=== PATIENT | female | born 1955 | race Two or more races ===

== ENCOUNTER 2024-10-02 11:02 | Inpatient (IN) | payer MEDICAID, OTHER ==
[~2024-10-02] VITALS: Ht 152.4 cm; Wt 77.0 kg
--- NOTE | 2024-10-02 11:32 | ECG ---
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
--- NOTE | 2024-10-02 11:55 | ED.PDOC ---
Musculoskeletal HPI Comments 69-year-old female presents with a chief complaint of bilateral leg pain and tingling x 1 month. Patient states that she had a vascular surgery on both her legs on August 29, 2024, and since then has developed bilateral leg pain. Patient states that most of the pain is localized to her left calf compared to the right. Patient also states that she feels chest pressure to her sternal region. Patient denies active chest pain. Patient specifically denies dizziness even though the triage notes state that she was dizzy. PMHx: Pre-Diabetes, HTN, Osteoporosis PSHx: Vascular Surgery on Bilateral Legs HPI: Poor Historian. REVIEW OF SYSTEMS: CONSTITUTIONAL: Denies acute: fever, diaphoresis, chills, HEAD: Denies acute: headache, photophobia Eyes: Denies acute: Double vision, vision loss, eye pain, eye discharge. EARS: Denies acute: tinnitus, hearing loss, ear discharge, ear pain, THROAT: Denies acute: sore throat, swelling, difficulty swallowing , pain with swallowing, change in voice. NECK: Denies acute: neck pain, neck swelling, stiff neck. HEART: Denies acute : palpitations, LUNGS: Denies acute: SOB, wheezing, cough, hemoptysis ABDOMEN: Denies acute: abdominal pain, Nausea, Vomiting, diarrhea, melena , hematemesis, hematochezia SKIN: Denies acute: rash, redness, lesions, itchiness. EXTREMITIES: Denies acute: calf pain, numbness, tingling, weakness, Denies acute: Low back pain. Neuro: Denies acute: focal neurological deficit, motor or sensory focal neurological deficit, tremors, seizure like activity, confusion, dizziness, change in mental status, loss of bowel or bladder function, cauda equina like symptoms. : Denies acute: dysuria, hematuria, flank pain, increase in urinary frequency. PSYCH: Denies acute: hallucination, suicidal ideation, homicidal ideation. FEMALE: Denies acute: abnormal vaginal bleeding, foul odor, unusual discharge. PHYSICAL EXAM: General: ---mild-----acute distress, awake and alert. Head: normocephalic, atraumatic. Neck: supple, trachea is midline, no swelling. Throat: Normal phonation. Eyes:, no erythema, no purulent discharge, no proptosis, no icterus. Heart: regular rate, regular rhythm, no significant murmur appreciated. Lungs: no apparent respiratory distress, Able to speak in full sentences. No wheezing, no rhonchi, no crackles. No stridors Clear to auscultation bilaterally. Abdomen: non tender to palpation, non distended, soft, no guarding, no rebound, + bowel sounds. Neuro: Awake, Alert, oriented to name, self, situation, follows commands GCS=15. Speech is normal. Skin: no petechia, no purpura, no cyanosis, non-pale, not jaundice. Lower extremities: --no - Pitting edema no deformity, no focal swelling, no calf TTP. Patient have some left lateral focal calf tenderness at the site where she had some vein surgery recently in the left lower extremity. Patient is neurovascularly intact in bilateral lower extremity. Makes eye contact. moves all four extremities. Face: no apparent facial droop. Pedal pulses are palpable. ED COURSE: DISCLAIMER: This medical document was created using an electronic medical record system with voice recognition software and computerized dictation system. Although this document has been carefully reviewed, there might still be some phonetic and typographical errors. Occasional wrong-word or "sound-alike" substitutions may have occurred due to the inherent limitations of voice recognition software. These areas are purely typographical due to imperfections of the software programs and do not reflect any compromise in the patient's medical care. Please read the chart carefully and recognize, using context, where these substitutions have occurred. 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 Was a procedure done?: No Differential Diagnosis EXT Differential Diagnosis: Cellulitis, CHF, Deep Vein Thrombosis, Compartment Syndrome, Fracture, Sprain, Contusion, Strain, Rheumatoid, Neurovascular injury, Arthritis, Bursitis, Other (As far as the chest tightness: Ddx include but not limitied to gastritis, musculoskeletal pain, radiculopathy, atypical chest pain, dissection, aneurysm, ACS, unstable angina, hiatal hernia, GERD, anxiety, costochondritis, PE, pneumothroax, neoplasm, cardiac ischemia, drug abuse, anemia.) X-Ray, Labs, Meds, VS Vital Signs Date Time Temp Pulse Resp B/P (MAP) Pulse Ox O2 Delivery O2 Flow Rate FiO2 10/02/24 22:20 99.0 52 18 146/70 (95) 96 99.0 10/02/24 11:21 69 10/02/24 11:06 98.6 65 18 132/52 96 98.6 Lab Test 10/02/24 18:26 10/02/24 14:40 10/02/24 13:22 10/02/24 11:18 Range/Units Troponin I High Sensitivity 10 8 7 </=34 ng/L White Blood Count 6.4 4.4-10.8 10^3/uL Red Blood Count 4.75 4.0-5.20 10^6/uL Hemoglobin 14.3 12.2-16.2 g/dL Hematocrit 42.3 36.0-46.0 % Mean Corpuscular Volume 88.9 80.0-100.0 fL Mean Corpuscular Hemoglobin 30.1 28.0-32.0 pg Mean Corpuscular Hemoglobin Concent 33.9 32.0-36.0 g/dL Red Cell Distribution Width 14.3 11.8-14.3 % Platelet Count 232 140-450 10^3/uL Mean Platelet Volume 9.0 6.9-10.8 fL Neutrophils (%) (Auto) 65.4 37.0-80.0 % Lymphocytes (%) (Auto) 24.5 10.0-50.0 % Monocytes (%) (Auto) 6.8 0.0-12.0 % Eosinophils (%) (Auto) 2.5 0.0-7.0 % Basophils (%) (Auto) 0.8 0.0-2.0 % Neutrophils # (Auto) 4.2 1.6-8.6 10 ^3/uL Lymphocytes # (Auto) 1.6 0.4-5.4 10 ^3/uL Monocytes # (Auto) 0.4 0-1.3 10 ^3/uL Eosinophils # (Auto) 0.2 0-0.8 10 ^3/uL Basophils # (Auto) 0 0-0.2 10 ^3/uL Nucleated Red Blood Cells 0.0 % D-Dimer, Quantitative 0.54 H 0.0-0.49 mg/L FEU Sodium Level 142 136-145 mmol/L Potassium Level 4.8 3.5-5.1 mmol/L Chloride Level 108 H 98-107 mmol/L Carbon Dioxide Level 28 20-31 mmol/L Anion Gap 6 5-15 Blood Urea Nitrogen 9 9-23 mg/dL Creatinine 0.63 0.550-1.02 mg/dL Glomerular Filtration Rate Calc 95 >90 mL/min BUN/Creatinine Ratio 14.3 10.0-20.0 Serum Glucose 98 74-106 mg/dL Lactic Acid Level 0.7 0.4-2.0 mmol/L Calcium Level 9.6 8.7-10.4 mg/dL Magnesium Level 2.5 1.6-2.6 mg/dL Total Bilirubin 0.5 0.2-1.0 mg/dL Aspartate Amino Transferase (AST) 25 13-40 U/L Alanine Aminotransferase (ALT) 26 7-40 U/L Alkaline Phosphatase 54 46-116 U/L B-Type Natriuretic Peptide 127.31 0-100 pg/mL Total Protein 7.3 5.7-8.2 g/dL Albumin 4.6 3.2-4.8 g/dL POC Glucose 136 H 70-106 mg/dl PATIENT: NATHALY FAIRBANKSCT: [id number]: [id number] : 1955 LOC: ER ROOM / BED: / AGE / SEX: 69 / F ADM STATUS: REG ER SERVICE 1150 ORDERING PHYSICIAN: AUDREY REGAN DO PROCEDURE(s): CXRP - CHEST PORTABLE REASON: cp ORDER NUMBER(s): [id number], ACCESSION NUMBER(s): [id number] CHEST RADIOGRAPH Indication: cp Technique: Single frontal view of the chest was obtained COMPARISON: None FINDINGS: Lines and Tubes: None Lungs: Clear Pleura: No effusion. No pneumothorax. Cardiomediastinal contours: Unremarkable Bones: Unremarkable IMPRESSION: No acute disease. ATED BY: ANDER NOBLE MD DICTATED DATE/TIME: 10/02/241220 SIGNED BY: ANDER NOBLE MD SIGNED DATE/TIME: 10/02/24 [address] [address] Ph: [phone] DIAGNOSTIC IMAGING Diagnostic Imaging Report : [id number] Signed PATIENT: NATHALY FAIRBANKSCT: [id number] UNIT: [id number] : 1955 LOC: ER ROOM / BED: / AGE / SEX: 69 / F ADM STATUS: REG ER SERVICE 1508 ORDERING PHYSICIAN: AUDREY REGAN DO PROCEDURE(s): CTACH - CT ANGIO CHEST CONTRAST REASON: cp ORDER NUMBER(s): [id number], ACCESSION NUMBER(s): [id number] CTA Chest with intravenous contrast INDICATION: cp COMPARISON: None TECHNIQUE: Multidetector spiral CTA of the chest was performed of the chest with intravenous contrast. PULMONARY ANGIOGRAPHY PROTOCOL was utilized using a bolus- tracking technique centered on the main pulmonary artery. Axial, coronal and sagittal multiplanar and MIP reformats were performed. Radiation Dose : 1. Chest: CTDI volume is 26.78 mGy. Dose-length product is 1.79 mGy*cm The dose indicators for CT are the volume Computed Tomography (CT) Dose Index (CTDIvol) and the Dose Length Product (DLP), and are measured in units of mGy and mGy-cm, respectively. These indicators are not patient dose, but values generated from the CT scanner acquisition factors. The report includes radiation exposure data for exposures received during this examination. Findings: Pulmonary artery: No pulmonary embolism Lower neck: Normal thyroid. Lungs: No focal consolidation, pleural effusion or pneumothorax. Heart/Vascular Structures: Normal heart size. No pericardial effusion. Lymph Nodes: No adenopathy Pleura: No pleural effusion or significant pneumothorax. Musculoskeletal: No acute osseous abnormality. Soft tissues: Normal. Upper abdomen: Limited portions of the upper abdomen are unremarkable. IMPRESSION: 1. No pulmonary embolism. 2. No acute thoracic finding. ATED BY: NIMESH DAMIAN MD DICTATED DATE/TIME: 10/02/241741 SIGNED BY: NIMESH DAMIAN MD SIGNED DATE/TIME: 10/02/241741 CC: Time of 1ST Reevaluation: 12:13 Reevaluation 1ST: Unchanged Time of 2ND Reevaluation: 15:09 ( OF NOW, ULTRASOUND HAS NOT BEEN COMPLETED YET. ) Patient Education/Counseling: Diagnosis, Treatment Family Education/Counseling: No Family Present Comments MDM: patient presented with the above HPI.--leg pain and cardiac--workup was initiated. patient was found with the above mentioned diagnosis. the following medications were ordered: please refer to order lists of meds and tests obtained by myself Dr. Regan. Patient ED course and VS have been stabilized. Patient has been reassessed in the ED and remained in a stable condition. Escalation of care considered: Consideration of escalation to observation or admission Rule out PE. Rule out DVT. Patient was ADMITTED to the medicine team for further evaluation and treatment of their presentation. All the reports of any imaging studies that were ordered by myself were reviewed by myself. Departure 1 Departure Time of Disposition: 14:09 Impression: Primary Impression: Leg pain Qualified Codes: M79.604 - Pain in right leg; M79.605 - Pain in left leg Additional Impressions: Chest pain Qualified Codes: R07.9 - Chest pain, unspecified Left against medical advice Disposition: 09 ADMITTED INPATIENT Admit to: [facility] Condition: Fair Additional Instructions: Patient was placed for admission but I was informed she left against medical advice Discharged With: Self Critical Care Note Critical Care Time?: No I personally scribed for AUDREY REGAN DO ([email or web address]) on 10/02/24 at 11:55. Electronically submitted by Bradley Nation ([email or web address]). I personally scribed for AUDREY REGAN DO ([email or web address]) on 10/02/24 at 15:10. Electronically submitted by Bradley Nation ([email or web address]). I personally scribed for AUDREY REGAN DO ([email or web address]) on 10/02/24 at 16:12. Electronically submitted by Bradley Nation ([email or web address]). AUDREY REGAN DO Oct 02, 2024 11:55
--- NOTE | 2024-10-02 12:24 | DVH ---
CHEST RADIOGRAPH Indication: cp Technique: Single frontal view of the chest was obtained COMPARISON: None FINDINGS: Lines and Tubes: None Lungs: Clear Pleura: No effusion. No pneumothorax. Cardiomediastinal contours: Unremarkable Bones: Unremarkable IMPRESSION: No acute disease.
[2024-10-02 13:36] LABS: Hematocrit 42.3 % (36.0-46.0); Hemoglobin 14.3 g/dL (12.2-16.2); Mean Corpuscular Hemoglobin 30.1 pg (28.0-32.0); Mean Corpuscular Volume 88.9 fL (80.0-100.0); Nucleated Red Blood Cells % 0.0 %
[2024-10-02 13:54] LABS: Alanine Aminotransferase 26 U/L (7-40); Albumin 4.6 g/dL (3.2-4.8); Alkaline Phosphatase 54 U/L (46-116); Anion Gap 6 (5-15); BUN/Creatinine Ratio 14.3 (10.0-20.0); Blood Urea Nitrogen 9 mg/dL (9-23); Calcium 9.6 mg/dL (8.7-10.4); Carbon Dioxide 28 mmol/L (20-31); Glucose 98 mg/dL (74-106); Magnesium 2.5 mg/dL (1.6-2.6); Potassium 4.8 mmol/L (3.5-5.1); Sodium 142 mmol/L (136-145); Total Protein 7.3 g/dL (5.7-8.2)
[2024-10-02 13:55] LABS: Bilirubin, Total 0.5 mg/dL (0.2-1.0); Chloride 108 mmol/L (98-107)
[2024-10-02] MEDS: IOHEXOL 350 MG/ML 100ML IJ ONE (15:17)
[2024-10-02] MEDS ORDERED: ALBUTEROL SULF 2.5 MG/0.5ML(0.5%) NEB SOLN NEB PRN (16:00)
[2024-10-02] MEDS ORDERED: ACETAMINOPHEN 325 MG TAB PO PRN (16:00)
[2024-10-02] MEDS ORDERED: ONDANSETRON HCL 4 MG/2 ML VIAL IV PRN (16:00)
[2024-10-02] MEDS ORDERED: DOCUSATE SOD 100 MG CAP PO PRN (16:00)
[2024-10-02] MEDS ORDERED: hydrALAZINE HCL 20 MG/ML VL IV PRN (16:00)
[2024-10-02] MEDS ORDERED: HYDROcodone-ACET 5/325MG TAB PO PRN (16:00)
--- NOTE | 2024-10-02 16:19 | DVH ---
US BiLat Lower DVT HISTORY: leg pain COMPARISON: None TECHNIQUE: Duplex doppler evaluation of the deep venous system of the lower extremity from the common femoral veins, superficial femoral vein, great saphenous vein, deep femoral vein, popliteal vein, an d calf veins, including color doppler and spectral/pulsed waveform analysis, was performed. FINDINGS: Right: - Common femoral vein: Compressible - Deep femoral vein: Compressible - Femoral vein: Compressible - Popliteal vein: Compressible - Posterior tibial vein: Waveforms present - Other: Carmichael cyst. Left: - Common femoral vein: Compressible - Deep femoral vein: Compressible - Femoral vein: Compressible - Popliteal vein: Compressible - Posterior tibial vein: Waveforms present - Other: Carmichael cyst. IMPRESSION: No right or left lower extremity deep venous thrombosis.
--- NOTE | 2024-10-02 17:45 | DVH ---
CTA Chest with intravenous contrast INDICATION: cp COMPARISON: None TECHNIQUE: Multidetector spiral CTA of the chest was performed of the chest with intravenous contrast . PULMONARY ANGIOGRAPHY PROTOCOL was utilized using a bolus-tracking technique centered on the main p ulmonary artery. Axial, coronal and sagittal multiplanar and MIP reformats were performed. Radiation Dose : 1. Chest: CTDI volume is 26.78 mGy. Dose-length product is 1.79 mGy*cm The dose indicators for CT are the volume Computed Tomography (CT) Dose Index (CTDIvol) and the Dose Length Product (DLP), and are measured in units of mGy and mGy-cm, respectively. These indicators are not patient dose, but values generated from the CT scanner acquisition factors. The report includes radiation exposure data for exposures received during this examination. Findings: Pulmonary artery: No pulmonary embolism Lower neck: Normal thyroid. Lungs: No focal consolidation, pleural effusion or pneumothorax. Heart/Vascular Structures: Normal heart size. No pericardial effusion. Lymph Nodes: No adenopathy Pleura: No pleural effusion or significant pneumothorax. Musculoskeletal: No acute osseous abnormality. Soft tissues: Normal. Upper abdomen: Limited portions of the upper abdomen are unremarkable. IMPRESSION: 1. No pulmonary embolism. 2. No acute thoracic finding.
--- NOTE | 2024-10-02 23:08 | DVHHP2 ---
History of Present Illness Reason for Visit: Chest pain History of Present Illness The patient is a 69-year-old female heads of hearing with past medical history of prediabetes, hypertension, and osteoporosis who presented to [facility] ED with complaint of bilateral leg pain and tingling for the past 1 month. Patient reports that she had vascular surgery on both her legs on August 29, 2024, and since then she has developed bilateral leg pain. Patient states that most of the pain is localized to her left calf compared to the right, associated with chest pressure to her sternal region. Patient was seen and evaluated in the ED, laboratory data shows WBC 6.4, platelets 232, sodium 142, potassium 4.8, BUN 9, creatinine 0.63, glucose 98, calcium 9.6, troponin 8, D- dimer 0.54, BNP 127.31, blood pressure 132/52 pulse 69, temperature 98.6 F, O2 saturation 96% on room air. CT angiography showed no pulmonary embolism, no acute thoracic finding. Please see medication orders section in the computer. On my assessment, patient denied chest pain, no headache, no diaphoresis, no eli rtness of breath, no dizziness, no nausea, no vomiting, no fever, no chills. Patient was admitted for further evaluation and medical management. Past Medical History Pre-Diabetes, HTN, Osteoporosis Past Surgical History Vascular Surgery on Bilateral Legs Family History Reviewed, noncontributory to the management of this case. Past Social History The patient lives at home, denies smoking, alcohol or illicit drugs abuse. Review of Systems Constitutional: Yes: Weakness; No: Fever, Chills, Sweats, Malaise, Other Eyes: No: Pain, Vision change, Conjunctivae inflammation, Eyelid inflammation, Other, Redness ENT: No: Ear pain, Ear discharge, Nose pain, Nose discharge, Nose congestion, Mouth pain, Mouth swelling, Throat pain, Throat swelling, Other Respiratory: No: Cough, Dry, Shortness of breath, SOB with excertion, Wheezing, Hemoptysis, Pleuritic Pain, Sputum, Wheezing, Other Cardiovascular: No: Chest Pain, Palpitations, Orthopnea, Paroxysmal Noc. Dyspnea, Edema, Lt Headedness, Other Gastrointestinal: No: Nausea, Vomiting, Abdominal Pain, Diarrhea, Constipation, Melena, Hematochezia, Other Genitourinary: No Dysuria, No Frequency, No Incontinence, No Hematuria, No Retention, No Other Musculoskeletal: other (Bilateral calf pain), leg pain (Bilateral); No: neck pain, shoulder pain, arm pain, back pain, hand pain, foot pain Skin: No: Rash, Lesions, Jaundice, Bruising, Other Neurological: No: Weakness, Numbness, Incoordination, Change in speech, Confusion, Seizures, Other Allergies: Coded Allergies: NO KNOWN ALLERGIES (Unverified , 10/02/24) Medications Current Medications Medications Dose Ordered Sig/Venkat Route Start Time Stop Time Status Last Admin Dose Admin Albuterol 2.5 mg Q4HPRN PRN NEB 10/02/24 16:00 UNV Losartan Potassium 50 mg DAILY PO 10/03/24 10:00 Hydralazine HCl 10 mg Q6HP PRN IV 10/02/24 16:00 Gabapentin 300 mg TID PO 10/02/24 22:00 Atorvastatin Calcium 40 mg HS PO 10/02/24 22:00 Alendronate Sodium 70 mg Q7D@0600 PO 10/09/24 06:00 Future Hold Aspirin 81 mg DAILY PO 10/03/24 10:00 Sodium Chloride 10 ml Q8HR IV 10/02/24 22:00 Acetaminophen/ Hydrocodone Bitart 1 tab Q4HP PRN PO 10/02/24 16:00 Ondansetron HCl 4 mg Q4HP PRN IV 10/02/24 16:00 Docusate Sodium 100 mg BIDPRN PRN PO 10/02/24 16:00 Acetaminophen 650 mg Q6HP PRN PO 10/02/24 16:00 Exam Vital Signs Vital Signs Date Time Temp Pulse Resp B/P (MAP) Pulse Ox O2 Delivery O2 Flow Rate FiO2 10/02/24 22:20 99.0 52 18 146/70 (95) 96 99.0 General Appearance: Alert, Oriented X3, Cooperative, No acute distress HEENT: Atraumatic, PERRLA, EOMI, Mucous membr. moist/pink Respiratory: Normal air movement Cardiovascular: Regular rate, Normal S1, Normal S2, No murmurs Abdominal: Normal bowel sounds, Soft, No tenderness, No hepatospenomegaly, No masses Extremities: No clubbing, No cyanosis, No edema, Normal pulses, No tenderness/swelling Skin: No rashes, No breakdown, No significant lesion Neuro: Normal speech, Normal tone, Sensation intact, Cranial nerves 3-12 NL, Reflexes 2+, Other (Generalized weakness) Psych/Mental Status: Mental status NL, Mood NL Labs/Xrays Labs Test 10/02/24 18:26 10/02/24 13:22 10/02/24 11:18 Range/Units Troponin I High Sensitivity 10 </=34 ng/L White Blood Count 6.4 4.4-10.8 10^3/uL Red Blood Count 4.75 4.0-5.20 10^6/uL Hemoglobin 14.3 12.2-16.2 g/dL Hematocrit 42.3 36.0-46.0 % Mean Corpuscular Volume 88.9 80.0-100.0 fL Mean Corpuscular Hemoglobin 30.1 28.0-32.0 pg Mean Corpuscular Hemoglobin Concent 33.9 32.0-36.0 g/dL Red Cell Distribution Width 14.3 11.8-14.3 % Platelet Count 232 140-450 10^3/uL Mean Platelet Volume 9.0 6.9-10.8 fL Neutrophils (%) (Auto) 65.4 37.0-80.0 % Lymphocytes (%) (Auto) 24.5 10.0-50.0 % Monocytes (%) (Auto) 6.8 0.0-12.0 % Eosinophils (%) (Auto) 2.5 0.0-7.0 % Basophils (%) (Auto) 0.8 0.0-2.0 % Neutrophils # (Auto) 4.2 1.6-8.6 10 ^3/uL Lymphocytes # (Auto) 1.6 0.4-5.4 10 ^3/uL Monocytes # (Auto) 0.4 0-1.3 10 ^3/uL Eosinophils # (Auto) 0.2 0-0.8 10 ^3/uL Basophils # (Auto) 0 0-0.2 10 ^3/uL Nucleated Red Blood Cells 0.0 % D-Dimer, Quantitative 0.54 H 0.0-0.49 mg/L FEU Sodium Level 142 136-145 mmol/L Potassium Level 4.8 3.5-5.1 mmol/L Chloride Level 108 H 98-107 mmol/L Carbon Dioxide Level 28 20-31 mmol/L Anion Gap 6 5-15 Blood Urea Nitrogen 9 9-23 mg/dL Creatinine 0.63 0.550-1.02 mg/dL Glomerular Filtration Rate Calc 95 >90 mL/min BUN/Creatinine Ratio 14.3 10.0-20.0 Serum Glucose 98 74-106 mg/dL Lactic Acid Level 0.7 0.4-2.0 mmol/L Calcium Level 9.6 8.7-10.4 mg/dL Magnesium Level 2.5 1.6-2.6 mg/dL Total Bilirubin 0.5 0.2-1.0 mg/dL Aspartate Amino Transferase (AST) 25 13-40 U/L Alanine Aminotransferase (ALT) 26 7-40 U/L Alkaline Phosphatase 54 46-116 U/L B-Type Natriuretic Peptide 127.31 0-100 pg/mL Total Protein 7.3 5.7-8.2 g/dL Albumin 4.6 3.2-4.8 g/dL POC Glucose 136 H 70-106 mg/dl PATIENT: NATHALY FAIRBANKSCT: [id number] UNIT: [id number] : 1955 LOC: ER ROOM / BED: / AGE / SEX: 69 / F ADM STATUS: REG ER SERVICE 1150 ORDERING PHYSICIAN: AUDREY REGAN DO PROCEDURE(s): BLDVT - BiLat Lower DVT REASON: leg pain ORDER NUMBER(s): [id number], ACCESSION NUMBER(s): [id number] US BiLat Lower DVT HISTORY: leg pain COMPARISON: None TECHNIQUE: Duplex doppler evaluation of the deep venous system of the lower extremity from the common femoral veins, superficial femoral vein, great saphenous vein, deep femoral vein, popliteal vein, and calf veins, including color doppler and spectral/pulsed waveform analysis, was performed. FINDINGS: Right: - Common femoral vein: Compressible - Deep femoral vein: Compressible - Femoral vein: Compressible - Popliteal vein: Compressible - Posterior tibial vein: Waveforms present - Other: Carmichael cyst. Left: - Common femoral vein: Compressible - Deep femoral vein: Compressible - Femoral vein: Compressible - Popliteal vein: Compressible - Posterior tibial vein: Waveforms present - Other: Carmichael cyst. IMPRESSION: No right or left lower extremity deep venous thrombosis. ORDERING PHYSICIAN: AUDREY REGAN DO PROCEDURE(s): CXRP - CHEST PORTABLE REASON: cp ORDER NUMBER(s): [id number], ACCESSION NUMBER(s): [id number] CHEST RADIOGRAPH Indication: cp Technique: Single frontal view of the chest was obtained COMPARISON: None FINDINGS: Lines and Tubes: None Lungs: Clear Pleura: No effusion. No pneumothorax. Cardiomediastinal contours: Unremarkable Bones: Unremarkable IMPRESSION: No acute disease. ORDERING PHYSICIAN: AUDREY REGAN DO PROCEDURE(s): CTACH - CT ANGIO CHEST CONTRAST REASON: ORDER NUMBER(s): [id number], ACCESSION NUMBER(s): [id number] CTA Chest with intravenous contrast INDICATION: cp COMPARISON: None TECHNIQUE: Multidetector spiral CTA of the chest was performed of the chest with intravenous contrast. PULMONARY ANGIOGRAPHY PROTOCOL was utilized using a bolus- tracking technique centered on the main pulmonary artery. Axial, coronal and sagittal multiplanar and MIP reformats were performed. Radiation Dose : 1. Chest: CTDI volume is 26.78 mGy. Dose-length product is 1.79 mGy*cm The dose indicators for CT are the volume Computed Tomography (CT) Dose Index (CTDIvol) and the Dose Length Product (DLP), and are measured in units of mGy and mGy-cm, respectively. These indicators are not patient dose, but values generated from the CT scanner acquisition factors. The report includes radiation exposure data for exposures received during this examination. Findings: Pulmonary artery: No pulmonary embolism Lower neck: Normal thyroid. Lungs: No focal consolidation, pleural effusion or pneumothorax. Heart/Vascular Structures: Normal heart size. No pericardial effusion. Lymph Nodes: No adenopathy Pleura: No pleural effusion or significant pneumothorax. Musculoskeletal: No acute osseous abnormality. Soft tissues: Normal. Upper abdomen: Limited portions of the upper abdomen are unremarkable. IMPRESSION: 1. No pulmonary embolism. 2. No acute thoracic finding. SEPSIS Sepsis Screen Date sepsis recognized/suspect: Oct 02, 2024 Time Sepsis recognized/suspect: 1109 Recent Procedure: No On Antibiotic Therapy: No Respiratory Rate >20: No Heart Rate >90: No Temp<36 C (96.8 F) or >38.3 C: No SBP <90 or MAP <65 mmHG: No New Acute Mental Status Change: No Is the patient on CPAP, BIPAP,: No Physician Orders Losartan Tablet (Cozaar Tablet) (10/03/24 10:00) Hydralazine Injection (Apresoline Inject (10/02/24 16:00) Gabapentin Capsule (Neurontin Capsule) (10/02/24 22:00) Atorvastatin (Lipitor) (10/02/24 22:00) Alendronate Sodium (Fosamax) (10/09/24 06:00) Aspirin Tablet (10/03/24 10:00) Allergies (10/02/24 15:53) Code Status (10/02/24 15:53) Sodium Chloride Lock (Saline Lock Ns) (10/02/24 22:00) Oxygen Per Hour (10/02/24 15:53) Hydrocodone-Acet 5/325mg Tab ([place]itter 5/32 (10/02/24 16:00) Ondansetron Hcl (Zofran) (10/02/24 16:00) Docusate Sodium Capsule (Colace Capsule) (10/02/24 16:00) Fall Risk Precautions In Place QSHIFT (10/02/24 15:53) Complete Blood Count (10/03/24 04:00) Comprehensive Metabolic Panel (10/03/24 04:00) Cardiac Diet-2gna,Lofat,Lochol (10/02/24 Dinner) Condition: Serious (10/02/24 15:53) Acetaminophen Tablet (Tylenol Tablet) (10/02/24 16:00) Maintain Bed Rest (10/02/24 15:53) Sequential Compression Device (10/02/24 ) Admit (10/02/24 23:02) Nitroglycerin Sublingual (Ntrostat Subli (10/02/24 23:15) Morphine Sulfate Injection (10/02/24 23:15) Stat Ekg For Chest Pain (10/02/24 23:02) Notify Md Of Changes From Base (10/02/24 23:02) Ammunition Specialist For 24 Hours (10/02/24 23:02) Emergency Dysrhythmia Protocol (10/02/24 23:02) Rhythm Strips Once Every Shift (10/02/24 23:02) Oxygen By Nasal Cannula (10/02/24 23:02) Vital Signs Date Time Temp Pulse Resp B/P (MAP) Pulse Ox O2 Delivery O2 Flow Rate FiO2 10/02/24 22:20 99.0 52 18 146/70 (95 96 99.0 Laboratory Tests Test 10/02/24 13:22 Lactic Acid Level 0.7 mmol/L (0.4-2.0) White Blood Count 6.4 10^3/uL (4.4-10.8) Assessment/Plan Assessment/Plan Bilateral leg pain Chest pain Elevated D-dimer Chest pain, unspecified Left against medical advice Plan 1. Admit to med surge unit 2. Breathing treatment 3. Pain control management 4. Management of fluids and electrolytes 5. Consultation for hospitalist 6. Diagnostic tests CT angiography 7. DVT prophylaxis on aspirin 8. Repeat labs CBC, CMP in a.m. 9. Continue with current medical management 10. Treatment plan discussed with patient and RN. Patient verbalized understanding. Plan discussed with: Patient, Other (RN) My Orders Orders - REJI RUDD DNP Procedure Category Date Status Time Losartan Tablet PHA 10/03/24 In Process (Cozaar Tablet) 10:00 Hydralazine Injection PHA 10/02/24 In Process (Apresoline Inject 16:00 Gabapentin Capsule PHA 10/02/24 In Process (Neurontin Capsule) 22:00 Atorvastatin (Lipitor) PHA 10/02/24 In Process 22:00 Alendronate Sodium PHA 10/09/24 In Process (Fosamax) 06:00 Aspirin Tablet PHA 10/03/24 In Process 10:00 Allergies DALIA 10/02/24 In Process 15:53 Code Status CODE 10/02/24 Transmitted 15:53 Sodium Chloride Lock PHA 10/02/24 In Process (Saline Lock Ns) 22:00 Oxygen Per Hour RT 10/02/24 Transmitted 15:53 Hydrocodone-Acet PHA 10/02/24 In Process 5/325mg Tab ([place]itter 16:00 Ondansetron Hcl PHA 10/02/24 In Process (Zofran) 16:00 Docusate Sodium PHA 10/02/24 In Process Capsule (Colace 16:00 Fall Risk Precautions DALIA 10/02/[address] 15:53 Complete Blood Count LAB 10/03/24 Verified 04:00 Comprehensive LAB 10/03/24 Verified Metabolic Panel 04:00 Cardiac DIET 10/02/24 Transmitted Diet-2gna,Lofat,Lochol Dinner Condition: Serious DALIA 10/02/24 In Process 15:53 Acetaminophen Tablet PHA 8/12/25 In Process (Tylenol Tablet) 16:00 Maintain Bed Rest [facility] 10/02/24 In Process 15:53 Sequential [facility] 10/02/24 In Process Compression Device Admit ADMIT 10/02/24 Verified 23:02 Nitroglycerin [facility] 10/02/24 Verified Sublingual (Ntrostat 23:15 Morphine Sulfate [facility] 10/02/24 Verified Injection 23:15 Stat Ekg For Chest [facility] 10/02/24 Verified Pain 23:02 Notify Md Of Changes [facility] 10/02/24 Verified From Base 23:02 Ammunition Specialist For [facility] 10/02/24 Verified 24 Hours 23:02 Emergency Dysrhythmia [facility] 10/02/24 Verified Protocol 23:02 Rhythm Strips Once [facility] 10/02/24 Verified Every Shift 23:02 Oxygen By Nasal 10/02/24 Verified Cannula 23:02 Problem List: (1) Bilateral leg pain (2) Chest pain (3) Elevated d-dimer (4) Left against medical advice (5) Chest pain, unspecified Date of Service: Oct 02, 2024 Billing Provider: REJI RUDD DNP Common Visit Codes: [id number] INP/OBS CARE (HIGH) REJI RUDD DNP Oct 02, 2024 23:08
[2024-10-02] MEDS ORDERED: MORPHINE SULFATE INJ 2 MG/ml SYRG IV PRN (23:15)
[2024-10-02] MEDS ORDERED: NITROGLYCERIN 0.4 MG SL TAB SL PRN (23:15)
[2024-10-03] MEDS: GABAPENTIN 300 MG CAP PO SCH (00:10)
[2024-10-03] MEDS: ATORVASTATIN 20 MG TAB PO SCH (00:10)
[2024-10-03] MEDS: SODIUM CHLOR 0.9% PF (SALINE LOCK) 10ML VIAL/SYR IV SCH (00:10)
[2024-10-03 06:48] LABS: Hematocrit 41.5 % (36.0-46.0); Hemoglobin 14.1 g/dL (12.2-16.2); Mean Corpuscular Hemoglobin 29.8 pg (28.0-32.0); Mean Corpuscular Volume 88.0 fL (80.0-100.0); Nucleated Red Blood Cells % 0.0 %
[2024-10-03 07:12] LABS: Alanine Aminotransferase 23 U/L (7-40); Alkaline Phosphatase 52 U/L (46-116); Anion Gap 9 (5-15); BUN/Creatinine Ratio 22.7 (10.0-20.0); Blood Urea Nitrogen 17 mg/dL (9-23); Calcium 9.1 mg/dL (8.7-10.4); Carbon Dioxide 28 mmol/L (20-31); Chloride 102 mmol/L (98-107); Glucose 98 mg/dL (74-106); Potassium 4.3 mmol/L (3.5-5.1); Sodium 139 mmol/L (136-145); Total Protein 7.1 g/dL (5.7-8.2)
[2024-10-03 07:13] LABS: Albumin 4.5 g/dL (3.2-4.8); Bilirubin, Total 0.5 mg/dL (0.2-1.0)
[2024-10-03 08:40] VITALS: PULSE 80; RESP 19; O2SAT 95
[2024-10-03] MEDS: LOSARTAN POTASSIUM 50 MG TAB PO SCH (11:01)
[2024-10-03] MEDS ORDERED: HYDROcodone-ACET 10/325MG TAB PO PRN (14:00)
--- NOTE | 2024-10-03 14:51 | DVH ---
EXAM: CT HEAD WITHOUT CONTRAST INDICATION: r/o stroke TECHNIQUE: CT of the head without intravenous contrast. Radiation Dose Information: CT Dose: CTDI volume is 52.5 mGy. Dose-length product is 1034.66 mGy*cm The dose indicators for CT are the volume Computed Tomography (CT) Dose Index (CTDIvol) and the Dose Length Product (DLP), and are measured in units of mGy and mGy-cm, respectively. These indicators are not patient dose, but values generated from the CT scanner acquisition factors. The report includes radiation exposure data for exposures received during this examination. COMPARISON: None FINDINGS: There is no evidence of acute intracranial hemorrhage, extra-axial collection, mass effect, midline s hift, herniation or hydrocephalus. The ventricles, sulci and cisterns are age appropriate. The goss-white differentiation is intact. Patchy periventricular and subcortical white matter hypoattenuation is nonspecific but may be related to small vessel ischemic disease. The visualized paranasal sinuses and mastoid air cells are clear. The surrounding soft tissues and osseous structures are unremarkable. IMPRESSION: No acute intracranial abnormality.
[2024-10-03 16:06] VITALS: PULSE 65; RESP 18; O2SAT 94
--- NOTE | 2024-10-03 16:50 | DVH ---
ULTRASOUND CAROTID DUPLEX BILATERAL REASON FOR EXAM: dizziness COMPARISON: None TECHNIQUE: Using real-time freeze-frame technique with the 6 MHz small parts transducer, multiple lo ngitudinal and transverse sections were obtained. Simultaneous color flow Doppler imaging was perfor med. FINDINGS: There is minimal calcified plaque in both carotid bulbs and internal carotid arteries. Wa veforms are normal. Flow is laminar throughout. Peak systolic velocities as well as ICA/CCA ratios ar e normal. Flow through the vertebral and external carotid arteries is antegrade bilaterally. PEAK SYSTOLIC VELOCITIES (cm/sec): RIGHT: CCA 77 Proximal ICA 85 Mid ICA 64 Distal ICA 114 ECA 89 ICA/CCA ratio 1.5 LEFT: CCA 83 Proximal ICA 71 Mid ICA 94 Distal ICA 114 ECA 106 ICA/CCA ratio 1.4 IMPRESSION: Minimal atherosclerotic disease with no hemodynamically significant stenosis. Any narrowing is less than 50%. Measurement of carotid stenosis is based on velocity parameters that correlate the residual internal carotid diameter with that of the more distal vessel in accordance with the [place] Symptomati c Carotid Endarterectomy Trial (NASCET).
[2024-10-03 17:00] VITALS: BP 128/4; PULSE 66; RESP 18; TEMP 97.6; O2SAT 99
[2024-10-03] MEDS ORDERED: LOSA-534 PO (17:39)
[2024-10-03] MEDS ORDERED: NAP500T PO (17:39)
[2024-10-03] MEDS: FUROSEMIDE 40 MG/4 ML VIAL IV ONE (17:45)
[2024-10-03 18:05] VITALS: BP 147/76; PULSE 65; RESP 18; TEMP 97.8; O2SAT 94
[2024-10-03 20:00] VITALS: PULSE 83
--- NOTE | 2024-10-03 20:29 | DVHPNRES ---
Progress Note Date Seen: Oct 03, 2024 Resident Creating Document: JAY RAMIREZ RESIDENT Medical Necessity Reason Pt with a Central, PICC or Fol: No Subjective Review of Systems The patient is a 69-year-old female heads of hearing with past medical history of prediabetes, hypertension, and osteoporosis who presented to [facility] ED with complaint of bilateral leg pain, dizziness, wobbling feeling of legs and tingling for the past 1 month. Patient reports that she had injections on both her legs on August 29, 2024 for varicose veins, and since then she has developed bilateral leg pain. Patient states that most of the pain is localized to her left calf compared to the right, associated with chest pressure to her sternal region. Patient denied chest pain, no headache, no diaphoresis, no shortness of breath, no dizziness, no nausea, no vomiting, no fever, no chills. Past Medical History:Pre-Diabetes, HTN, Osteoporosis Past Surgical History: none Family History: Reviewed, noncontributory to the management of this case. Past Social History: The patient lives at home, denies smoking, alcohol or illicit drugs abuse. ROS: 10/03/2024: Patient was seen by me in the holding area. We did a CT head, carotid Doppler, echo and give her aspirin and did checked her orthostatic vitals. We ruled out stroke. Patient has no active complaints besides pain in both her legs and a sensation of wobbly feeling that makes her feel this balanced. Objective vital signs Vital Sign Date Time Temp Pulse Resp B/P (MAP) Pulse Ox O2 Delivery O2 Flow Rate FiO2 10/03/24 18:05 97.8 65 18 147/76 (99) 94 97.8 10/03/24 16:06 Room Air* 0 21 medications Current Medications Medications Dose Ordered Sig/Venkat Route Start Time Stop Time Status Last Admin Dose Admin Albuterol 2.5 mg Q4HPRN PRN NEB 10/02/24 16:00 UNV Losartan Potassium 50 mg DAILY PO 10/03/24 10:00 10/03/24 11:01 50 MG Hydralazine HCl 10 mg Q6HP PRN IV 10/02/24 16:00 Gabapentin 300 mg TID PO 10/02/24 22:00 10/03/24 15:09 300 MG Atorvastatin Calcium 40 mg HS PO 10/02/24 22:00 10/03/24 00:10 40 MG Alendronate Sodium 70 mg Q7D@0600 PO 10/09/24 06:00 Future Hold Sodium Chloride 10 ml Q8HR IV 10/02/24 22:00 10/03/24 14:00 10 ML Ondansetron HCl 4 mg Q4HP PRN IV 10/02/24 16:00 Docusate Sodium 100 mg BIDPRN PRN PO 10/02/24 16:00 Acetaminophen 650 mg Q6HP PRN PO 10/02/24 16:00 Nitroglycerin 0.4 mg Q5MINP PRN SL 10/02/24 23:15 Morphine Sulfate 2 mg Q30M PRN IV 10/02/24 23:15 Aspirin 81 mg DAILY PO 10/04/24 10:00 Acetaminophen/ Hydrocodone Bitart 1 tab Q4HP PRN PO 10/03/24 14:00 Enoxaparin Sodium 40 mg DAILY SC 10/04/24 10:00 UNV Examination General Appearance: Alert, Oriented X3, Cooperative, No acute distress HEENT: Atraumatic, PERRLA, EOMI, Mucous membr. moist/pink Respiratory: Normal air movement Cardiovascular: Regular rate, Normal S1, Normal S2, No murmurs Abdominal: Normal bowel sounds, Soft, No tenderness, No hepatospenomegaly, No masses Extremities: No clubbing, No cyanosis, No edema, Normal pulses, varicose veins Skin: No rashes, No breakdown, No significant lesion Neuro: Normal speech, Normal tone, Sensation intact, Cranial nerves 3-12 NL, Reflexes 2+, Other (Generalized weakness) Psych/Mental Status: Mental status NL, Mood NL laboratory and microbiology Laboratory Tests 10/03/24 06:25 Test 10/03/24 06:25 Range/Units Serum Glucose 98 74-106 mg/dL Labs and/or images reviewed: Labs reviewed by me, Image(s) reviewed by me Problem List/Assessment/Plan Problem List/Assessment/Plan #Dizziness, weakness, rule out stroke -CT head: No acute intracranial abnormality. Carotid USG: Minimal atherosclerotic disease with no hemodynamically significant stenosis. Any narrowing is less than 50%. orthostatic vitals Echocardiogram, pending Aspirin 81 mg #Bilateral leg pain due to varicose veins -Elevated D-dimer -venous doppler shows No right or left lower extremity deep venous thrombosis. -CT angio: No pulmonary embolism. -leg elevation #Chest pain, Rule out ACS -negative troponins -Pain control management #hypertension -continue losartan #osteoporosis -alendronate continued DVT prophylaxis: Lovenox 40 mg subcutaneous daily Goals of care discussed with the patient for more than 27 minutes: Full code status Case discussed with , patient and nurse. Plan discussed with: Patient, Other (rn) My Orders My Orders Orders - JAY RAMIREZ RESIDENT Procedure Category Date Status Time Head Without Contrast CT 10/03/24 Resulted 13:57 Carotid Duplx W Color US 10/03/24 Resulted DOP 13:57 Orthostatic Vital ORDERS 10/03/24 Transmitted Signs 13:57 Echo 2d Mode Cardiac US 10/03/24 Logged DOP 13:57 Aspirin Tablet PHA 10/04/24 In Process 10:00 Hydrocodone-Acet PHA 10/03/24 In Process 10/325mg Tab ([place] 14:00 Enoxaparin Sodium PHA 10/04/24 Logged (Lovenox) 10:00 Thyroid Stimulating LAB 10/03/24 In Process Hormone 19:25 Date of Service: Oct 03, 2024 Billing Provider: MARY RICH MD Common Visit Codes: [id number] INP/OBS CARE(HIGH) JAY RAMIREZ RESIDENT Oct 03, 2024 20:29 MARY RICH MD Oct 03, 2024 23:55
[2024-10-03 21:00] VITALS: BP 94/49; PULSE 68; RESP 17; TEMP 97.8; O2SAT 96
[2024-10-04] VITALS (10 sets, daily range): BP systolic 95–152; BP diastolic 53–82; PULSE 51–86; RESP 14–18; TEMP 97.5–97.8; O2SAT 95–99
[2024-10-04] MEDS: ENOXAPARIN SOD 40 MG/0.4 ML SYRINGE SC SCH (09:24)
--- NOTE | 2024-10-04 12:02 | DVHDSRES ---
Discharge Summary Date of Admission Resident Creating Document: JAY RAMIREZ RESIDENT Oct 02, 2024 at 23:02 Date of Discharge: Oct 04, 2024 Admitting Diagnosis dizziness Labs/Diagnostic Data: Laboratory Results Test 10/03/24 06:25 10/02/24 18:26 10/02/24 13:22 10/02/24 11:18 White Blood Count 7.3 10^3/uL (4.4-10.8) Red Blood Count 4.72 10^6/uL (4.0-5.20) Hemoglobin 14.1 g/dL (12.2-16.2) Hematocrit 41.5 % (36.0-46.0) Mean Corpuscular Volume 88.0 fL (80.0-100.0) Mean Corpuscular Hemoglobin 29.8 pg (28.0-32.0) Mean Corpuscular Hemoglobin Concent 33.9 g/dL (32.0-36.0) Red Cell Distribution Width 14.2 % (11.8-14.3) Platelet Count 226 10^3/uL (140-450) Mean Platelet Volume 9.0 fL (6.9-10.8) Neutrophils (%) (Auto) 53.4 % (37.0-80.0) Lymphocytes (%) (Auto) 31.6 % (10.0-50.0) Monocytes (%) (Auto) 8.0 % (0.0-12.0) Eosinophils (%) (Auto) 6.2 % (0.0-7.0) Basophils (%) (Auto) 0.8 % (0.0-2.0) Neutrophils # (Auto) 3.9 10 ^3/uL (1.6-8.6) Lymphocytes # (Auto) 2.3 10 ^3/uL (0.4-5.4) Monocytes # (Auto) 0.6 10 ^3/uL (0-1.3) Eosinophils # (Auto) 0.4 10 ^3/uL (0-0.8) Basophils # (Auto) 0.1 10 ^3/uL (0-0.2) Nucleated Red Blood Cells 0.0 % Sodium Level 139 mmol/L (136-145) Potassium Level 4.3 mmol/L (3.5-5.1) Chloride Level 102 mmol/L (98-107) Carbon Dioxide Level 28 mmol/L (20-31) Anion Gap 9 (5-15) Blood Urea Nitrogen 17 mg/dL (9-23) Creatinine 0.75 mg/dL (0.550-1.02) Glomerular Filtration Rate Calc 86 mL/min (>90) BUN/Creatinine Ratio 22.7 (10.0-20.0) Serum Glucose 98 mg/dL (74-106) Calcium Level 9.1 mg/dL (8.7-10.4) Total Bilirubin 0.5 mg/dL (0.2-1.0) Aspartate Amino Transferase (AST) 24 U/L (13-40) Alanine Aminotransferase (ALT) 23 U/L (7-40) Alkaline Phosphatase 52 U/L (46-116) Total Protein 7.1 g/dL (5.7-8.2) Albumin 4.5 g/dL (3.2-4.8) Thyroid Stimulating Hormone (TSH) 1.74 uIU/mL (0.55-4.78) Troponin I High Sensitivity 10 ng/L (</=34) D-Dimer, Quantitative 0.54 mg/L FEU (0.0-0.49) Lactic Acid Level 0.7 mmol/L (0.4-2.0) Magnesium Level 2.5 mg/dL (1.6-2.6) B-Type Natriuretic Peptide 127.31 pg/mL (0-100) POC Glucose 136 mg/dl (70-106) Other Laboratory Tests 10/03/24 06:25 Brief Hx & Hospital Course: The patient is a 69-year-old female 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 Patient reports that she had injections on both her legs on August 29, 2024 for varicose veins, and since then she has developed bilateral leg pain. Patient states that most of the pain is localized to her left calf compared to the right, associated with chest pressure to her sternal region. Patient denied chest pain, no headache, no diaphoresis, no shortness of breath, no dizziness, no nausea, no vomiting, no fever, no chills. Past Medical History:Pre-Diabetes, HTN, Osteoporosis Past Surgical History: none Family History: Reviewed, noncontributory to the management of this case. Past Social History: The patient lives at home, denies smoking, alcohol or illicit drugs abuse. Brief history of hospitalization: Patient had dizziness, weakness and we ruled out stroke. A CT head showed no intracranial abnormality. Since the patient felt wobbly and was dizzy we did carotid USG which showed minimal atherosclerotic disease with no hemodynamically significant stenosis. Nine was less than 50%. Orthostatic vitals came back normal. Echocardiography showed HFpEF. We also gave the patient aspirin 81 mg. For bilateral leg pain due to varicose veins, with an elevated D-dimer we did a venous Doppler which showed no right or left lower extremity deep venous thrombosis. A CT angio showed no pulmonary embolism. We asked the patient to keep her leg elevated. Patient reported that she felt better. For patient's chest pain we ruled out ACS, troponins were negative we managed her pain through IV medication. Patient is hypertension was controlled by continuing home medication losartan. On venous Doppler we saw that she had bilateral leg Carmichael cyst. Patient has osteoporosis was continued as well. Patient is to follow up outpatient with primary care physician. She is now stable for discharge. Patient has been counseled regarding continuation of home medication and has shows a week with the discharge plan. General Appearance: Alert, Oriented X3, Cooperative, No acute distress HEENT: Atraumatic, PERRLA, EOMI, Mucous membr. moist/pink Respiratory: Normal air movement Cardiovascular: Regular rate, Normal S1, Normal S2, No murmurs Abdominal: Normal bowel sounds, Soft, No tenderness, No hepatospenomegaly, No masses Extremities: No clubbing, No cyanosis, No edema, Normal pulses, varicose veins Skin: No rashes, No breakdown, No significant lesion Neuro: Normal speech, Normal tone, Sensation intact, Cranial nerves 3-12 NL, Reflexes 2+, Other (Generalized weakness) Psych/Mental Status: Mental status NL, Mood NL Operations or Procedures CHEST RADIOGRAPH IMPRESSION: No acute disease. US BiLat Lower DVT HISTORY: leg pain FINDINGS: Right: - Common femoral vein: Compressible - Deep femoral vein: Compressible - Femoral vein: Compressible - Popliteal vein: Compressible - Posterior tibial vein: Waveforms present - Other: Carmichael cyst. Left: - Common femoral vein: Compressible - Deep femoral vein: Compressible - Femoral vein: Compressible - Popliteal vein: Compressible - Posterior tibial vein: Waveforms present - Other: Carmichael cyst. IMPRESSION: No right or left lower extremity deep venous thrombosis. CTA Chest with intravenous contrast INDICATION: cp IMPRESSION: 1. No pulmonary embolism. 2. No acute thoracic finding. ULTRASOUND CAROTID DUPLEX BILATERAL REASON FOR EXAM: dizziness COMPARISON: None TECHNIQUE: Using real-time freeze-frame technique with the 6 MHz small parts transducer, multiple longitudinal and transverse sections were obtained. Simultaneous color flow Doppler imaging was performed. FINDINGS: There is minimal calcified plaque in both carotid bulbs and internal carotid arteries. Waveforms are normal. Flow is laminar throughout. Peak systolic velocities as well as ICA/CCA ratios are normal. Flow through the vertebral and external carotid arteries is antegrade bilaterally. PEAK SYSTOLIC VELOCITIES (cm/sec): RIGHT: CCA 77 Proximal ICA 85 Mid ICA 64 Distal ICA 114 ECA 89 ICA/CCA ratio 1.5 LEFT: CCA 83 Proximal ICA 71 Mid ICA 94 Distal ICA 114 ECA 106 ICA/CCA ratio 1.4 IMPRESSION: Minimal atherosclerotic disease with no hemodynamically significant stenosis. Any narrowing is less than 50%. Measurement of carotid stenosis is based on velocity parameters that correlate the residual internal carotid diameter with that of the more distal vessel in accordance with the [place] Symptomatic Carotid Endarterectomy Trial (NASCET). EXAM: CT HEAD WITHOUT CONTRAST INDICATION: r/o stroke IMPRESSION: No acute intracranial abnormality. Condition at Discharge: Stable Final Diagnosis/Problems List #Dizziness, weakness, ruled out stroke, likely due to HfpEf #Bilateral leg pain due to varicose veins #Chest pain, Rule out ACS #hypertension #osteoporosis #b/l leg bakers cyst Discharge Disposition: Home Discharge Instruct/Medications Diet: Consistent carbohydrate, Cardiac 2g Na,low cholest Activity: No Restrictions, As Tolerated Follow Up/Referral: Follow up with primary care physician in 1 week Follow up with discharge clinic within 1 week Medications: Aspirin 81 mg per orally daily Atorvastatin 40 mg per orally HS Docusate sodium 100 mg capsule pull orally twice a day b.i.d. PRN Jardiance 10 mg per orally daily gabapentin 200 mg capsule per orally twice a day Spironolactone 25 mg per orally daily Continue losartan 50 mg 1 tab daily Scheduled Aspirin (Aspirin Low Dose), 81 MG PO DAILY Atorvastatin Calcium (Atorvastatin Calcium), 40 MG PO HS Empagliflozin (Jardiance), 10 MG PO DAILY Gabapentin (Gabapentin), 300 MG PO TID Losartan Potassium (Losartan Potassium), 1 TAB PO DAILY, (Reported) Spironolactone (Spironolactone), 25 MG PO DAILY Scheduled PRN Docusate Sodium (Docusate Sodium), 100 MG PO BIDPRN PRN Discontinued Medications Naproxen (Naprosyn Tablet), 1 TAB PO PRN, (Reported) Discharge Statement: "Patient was advised to return to the ER or call 911 if any headaches, dizziness, shortness of breath, chest pain, abdominal pain, bleeding, fevers, or worsening of medical condition. Patient was counseled about treatment plan, medications, possible side effects, patientverbalized understanding. All questions were answered to the best of my ability. This discharge took greater then 30 minutes in planning, reviewing documentation, counseling the patient, and discussing with other team members." ASSESSMENT ASSESSMENT Assessment Date of Service: Oct 04, 2024 Billing Provider: MARY RICH MD Common Visit Codes: 42081-NSK/OBS DISCH DAY >30min JAY RAMIREZ RESIDENT Oct 04, 2024 12:02 MARY RICH MD Oct 04, 2024 22:48
[2024-10-04 15:59] LABS: Urine Protein, UAD Negative (Negative)
[2024-10-04] MEDS ORDERED: ATOR20TA50 PO (16:55)
[2024-10-04] MEDS ORDERED: DOCU-265 PO (16:55)
[2024-10-04] MEDS ORDERED: SPIR25TA8 PO (16:55)
[2024-10-04] MEDS ORDERED: EMPA1TAB PO (16:55)
[2024-10-04] MEDS ORDERED: ASPI-325 PO (16:55)
[2024-10-04] MEDS ORDERED: GABA-1250 PO (16:55)
--- NOTE | 2024-10-05 00:04 | DVHSR ---
APPROVED REPORT EXAM: Two-dimensional and M-mode echocardiogram with Doppler and color Doppler. Blood Pressure: 136/68 mmHg INDICATION Hypertensive with dizziness RISK FACTORS Height: 5', Weight: 169 DIMENSIONS LVDd4.4 (3.8-5.7cm)LA (2D)3.6 (1.9-4.0cm)Aortic Root2.8 (2.0-3.7cm) LVDs3.2 (2.5-4.0cm)LA (MM) (1.9-4.0cm)Aortic Cusp Exc1.5 (1.5-2.0cm) EF (%) 60.0 (55-70%)Rt. Atrium4.1 (1.9-4.0cm)Asc. Aorta cm IVSd0.8 (0.7-1.1cm)RV (D) (1.8-2.4cm) PWd0.8 (0.7-1.1cm) Mitral Valve MitralMitral Stenosis E wave0.90m/sMV Mean GR.mmHg A wave0.80m/sMV Peak GR.mmHg E/A ratio1.12D MVAcm2 Aortic Valve Aortic ValveAortic Stenosis V11.20m/[place] Mean GR.6mmHg V21.60m/[place] Peak GR.11mmHg LVOT Diameter2.1 (1.8-2.4cm)Doppler AVA2.60cm2 Pulmonic Valve V20.60m/s Tricuspid Valve TR Velocity3.20m/s [id number] Conclusion LV EF IS 70% NORMAL VALVES MODERATE DEGREE PULMONARY HYPERTENSION RVSP IS 50 MM OF HG AND IS MODERATELY HIGH NO EFFUSION
--- NOTE | 2024-10-05 07:47 | ECG ---
[facility] Test Date: 2024-10-04 Test Time: 10:14:58 Pat Name: ESTEPHANIA FAIRBANKS Department: Respiratoy Room: 0246T A Gender: F [employer]st: JAYSON : 1955 Requested By: INOCENCIO ALFONSO Order Number: [id number] Reading MD: Measurements Intervals [place] Rate: 64 P: 51 MO: 133 QRS: -16 QRSD: 96 T: 12 QT: 402 QTc: 415 Interpretive Statements Sinus rhythm Borderline left axis deviation Low voltage, precordial leads Please click the below link to view image of tracing.
[2024-10-05] MEDS ORDERED: ASPI-498 OR (13:57)
[2024-10-05] MEDS ORDERED: EMPA1TAB PO (13:57)
[2024-10-05] MEDS ORDERED: ATOR40TA52 PO (13:57)
[2024-10-05] MEDS ORDERED: GABA-1250 PO (13:57)
[2024-10-05] MEDS ORDERED: SPIR25TA8 PO (13:57)
[2024-10-05] MEDS ORDERED: DOCU-265 PO (13:57)
[2024-10-05] MEDS ORDERED: LOSA-534 PO (13:57)
[2024-10-09] MEDS ORDERED: ALENDRONATE SODIUM 10 MG TAB PO SCH (06:00)
== END 2024-10-04 19:05 | disposition home or self-care (01) | DRG 197 ==
LOC: ER 11:02 → OVERFLOW 23:02 → TELE-EAST 10-03 18:01
PROVIDERS: ADMIT Internal Medicine; ATTEND Internal Medicine
DX: I86.8 Varicose veins of other specified sites (principal); I24.9 Acute ischemic heart disease, unspecified; I50.32 Chronic diastolic (congestive) heart failure; I11.0 Hypertensive heart disease with heart failure; M71.22 Synovial cyst of popliteal space [Baker], left knee; M71.21 Synovial cyst of popliteal space [Baker], right knee; M81.0 Age-related osteoporosis without current pathological fracture; Z79.899 Other long term (current) drug therapy
CPT/HCPCS: 36415; 70450; 71045; 71275; 80053; 81001; 82962; 83605; 83735; 83880; 84443; 84484; 85025; 85379; 93005; 93306; 93886; 93970; G0378